=== PATIENT | female | born 1945 | race Caucasian/White ===

== ENCOUNTER → 2021-04-13 | Day surgery (SDC) | payer MEDICARE, OTHER ==
[~2021-04-13] MED LIST: ALPRAZOLAM0.25 MG PO; BENTYL 20MG TAB20 MG PO; CELEXA 20MG TAB20 MG PO; COLACE100 MG PO; COZAAR100 MG PO; ELIQUIS5 MG PO; FUROSEMIDE20 MG PO; HYDROCHLOROTHIA25 MG PO; INDERAL LA60 MG PO; LEVOTHYROXINE125 MCG PO; NORVASC 5 MG TAB5 MG PO; OMNICEF 300 MG300 MG PO; PANTOPRAZOLE SO40 MG PO; POTASSIUM CHLO20 MEQ PO; SIMVASTATIN10 MG PO; VERAPAMIL ER240 MG PO; ZYRTEC10 MG PO
== END | disposition home or self-care (01) ==
LOC: OR 06:08
DX: Z12.11 Encounter for screening for malignant neoplasm of colon (principal); D12.3 Benign neoplasm of transverse colon; K63.5 Polyp of colon; K63.89 Other specified diseases of intestine; K64.1 Second degree hemorrhoids; K64.4 Residual hemorrhoidal skin tags; I10 Essential (primary) hypertension; E03.9 Hypothyroidism, unspecified; Z86.010 Personal history of colon polyps; Z85.038 Personal history of other malignant neoplasm of large intestine; Z88.5 Allergy status to narcotic agent; Z79.01 Long term (current) use of anticoagulants; Z79.899 Other long term (current) drug therapy
CPT/HCPCS: J2001; J2704; J7040